=== PATIENT | male | born 1995 | race Caucasian/White ===

== ENCOUNTER 2025-08-25 13:24 | Emergency (ER) | payer SELFPAY ==
[~2025-08-25] VITALS: Ht 170.2 cm; Wt 68.0 kg
[2025-08-25 13:36] VITALS: TEMP 98.2
[2025-08-25] MEDS: IV NS 0.9% 1,000 ML BAG IV ONE (14:20)
[2025-08-25] MEDS ORDERED: CHLORDIAZEPOXIDE HCL 25 MG CAPSULE ONE (14:30)
[2025-08-25] MEDS: CHLORDIAZEPOXIDE HCL 25 MG CAPSULE PO ONE (14:34)
[2025-08-25 14:36] LABS: PLATELET COUNT (AUTO) 234 K/uL (150-450); RED BLOOD CELL COUNT(AUTO) 5.29 MIL/uL (4.5-6.0); RED CELL DISTRIBUTION WIDTH 14.1 % (11.5-15.0); WHITE BLOOD COUNT (AUTO) 12.1 K/uL (4.3-11.0)
[2025-08-25 14:56] LABS: APPEARANCE,URINE TURBID (CLEAR); BLOOD, URINE NEGATIVE Ery/uL (NEGATIVE); LEUKOCYTE ESTERASE ,URINE NEGATIVE (NEGATIVE); NITRITE, URINE NEGATIVE (NEGATIVE); UGLUCOSE NEGATIVE (NEGATIVE)
[2025-08-25 15:02] LABS: SODIUM SERUM 145 mmol/L (136-145)
[2025-08-25 15:04] LABS: ADD URINE CULTURE NO; SQUAMOUS EPITHELIAL CELL,UR None Seen /HPF (None Seen); URINE AMORPHOUS PHOSPHATES Few /HPF (None Seen)
[2025-08-25 15:09] LABS: CALCIUM, SERUM 8.9 mg/dL (8.5-10.1); CREATININE 0.9 mg/dL (0.6-1.3); UREA NITROGEN, BLOOD 10 mg/dL (7-18)
[2025-08-25 15:30] LABS: ALCOHOL, BLOOD < 3 mg/dL (0-10); ASPARTATE AMINOTRANSFERASE 37 U/L (15-37); TOTAL PROTEIN, SERUM 7.9 g/dL (6.4-8.2)
[2025-08-25 15:34] LABS: AMPHETAMINE, URINE NEGATIVE (NEGATIVE); BARBITURATE, URINE NEGATIVE (NEGATIVE); BENZODIAZEPINE, URINE NEGATIVE (NEGATIVE); CANNABINOID, URINE POSITIVE (NEGATIVE); COCCAINE, URINE NEGATIVE (NEGATIVE); OPIATE, URINE NEGATIVE (NEGATIVE)
[2025-08-25 16:00] VITALS: BP 129/71; O2SAT 98
[2025-08-25] MEDS ORDERED: CHLO25CA22 PO (16:04)
== END 2025-08-25 16:56 ==
LOC: ER 13:36
DX: F10.239 Alcohol dependence with withdrawal, unspecified (principal); R07.89 Other chest pain; Z79.899 Other long term (current) drug therapy; Y90.9 Presence of alcohol in blood, level not specified
CPT/HCPCS: 99284; 96360; 93005; 85025; 80048; 80076; 81001; 36415; 80143; 80320; 80307; J7030; G0480